=== PATIENT | female | born 1990 | race Two or more races ===

== ENCOUNTER 2018-02-23 16:08 | Emergency (ER) | payer MEDICAID ==
[~2018-02-23] VITALS: Ht 172.7 cm; Wt 66.2 kg
--- NOTE | 2018-02-23 17:12 | NUR ---
Patient was seen by dr Benitez. urine sent to lab
[2018-02-23 17:20] LABS: *URINE HCG, QUAL NEGATIVE (NEGATIVE)
[2018-02-23 17:24] LABS: *BILIRUBIN,URIN NEGATIVE (NEGATIVE); *BLOOD, URINE 1+ (NEGATIVE); *CLARITY,URINE SLIGHTLY CLOUDY (CLEAR); *COLOR,URINE YELLOW (YELLOW); *KETONES,URINE NEGATIVE (NEGATIVE); *PROTEIN,URINE NEGATIVE (NEGATIVE); *UROBILINOGEN,URINE 0.2 E.U./dl (NORMAL); LEUKOCYTE ESTERASE ,URINE 1+ (NEGATIVE); NITRITE, URINE NEGATIVE (NEGATIVE); PH,URINE 6.5 (5.0-8.0); UGLUCOSE NEGATIVE (NEGATIVE)
[2018-02-23 17:31] LABS: BACTERIA,URINE FEW /HPF (NONE SEEN); SQUAMOUS EPITHELIAL CELL,UR MODERATE /HPF (NONE SEEN)
--- NOTE | 2018-02-23 17:57 | NUR ---
Dr saucedo at bedside speaking to patient about test results and krysta of care. DC, Rx and follow up instructions given and explained to patient who states she understands all instructions.
== END 2018-02-23 17:59 | disposition home or self-care (01) ==
LOC: ER 16:11
DX: N76.0 Acute vaginitis (principal)
CPT/HCPCS: 81001; 84703; 87086; 87491; 99284; A4663